=== PATIENT | female | born 1960 | race Caucasian/White ===

== ENCOUNTER 2024-12-18 09:24 | Outpatient (REF) | payer OTHER, SELFPAY ==
[2024-12-18 14:11] VITALS: BP 146/70; PULSE 63; RESP 18; TEMP 37; O2SAT 96; BMI 30.6
== END 2024-12-18 09:25 | disposition home or self-care (01) ==
LOC: HO.MS 09:24
PROVIDERS: Visit Provider Ophthalmology
PROC: (CPT 67800; principal; 2024-12-18 13:50)
DX: H00.12 Chalazion right lower eyelid (principal)
CPT/HCPCS: 67800; J2004